=== PATIENT | male | born 1980 | race Caucasian/White ===

== ENCOUNTER 2023-06-14 12:59 | Emergency (ER) | payer MEDICAID ==
[~2023-06-14] VITALS: Ht 177.8 cm; Wt 85.0 kg
[2023-06-14 13:10] VITALS: TEMP 98.7; O2SAT 98
[2023-06-14] MEDS ORDERED: IBUP-2028 MT (14:24)
[2023-06-14] MEDS ORDERED: AMOX1TAB16 MT (14:24)
[2023-06-14] MEDS: IBUPROFEN 600MG TABLET PO ONE (15:37)
[2023-06-14 15:53] VITALS: BP 130/95; PULSE 66; RESP 18
== END 2023-06-14 15:54 | disposition home or self-care (01) ==
LOC: ER 12:59
DX: J01.90 Acute sinusitis, unspecified (principal)
CPT/HCPCS: 99283

== ENCOUNTER 2023-07-11 09:07 | Emergency (ER) | payer MEDICAID ==
[~2023-07-11] VITALS: Ht 177.8 cm; Wt 85.0 kg
[~2023-07-11 09:07] MED LIST: AMOX1TAB16 MT; IBUP-2028 MT
[2023-07-11] MEDS ORDERED: AMOX1TAB16 MT (09:24)
[2023-07-11 09:29] VITALS: BP 156/103; PULSE 86; RESP 16; TEMP 98; O2SAT 99
== END 2023-07-11 09:31 | disposition home or self-care (01) ==
LOC: ER 09:07
DX: J34.0 Abscess, furuncle and carbuncle of nose (principal)
CPT/HCPCS: 99281; 99283

== ENCOUNTER 2023-08-08 10:21 | Emergency (ER) | payer MEDICAID ==
[~2023-08-08] VITALS: Ht 175.3 cm; Wt 82.0 kg
[2023-08-08 10:28] VITALS: BP 144/94; RESP 16; TEMP 98.2; O2SAT 97
[2023-08-08] MEDS ORDERED: BENZ100C86 MT (12:23)
[2023-08-08] MEDS ORDERED: OMEP10CA5 MT (12:23)
[2023-08-08] MEDS ORDERED: PECT2.8L4 MM (12:26)
[2023-08-08 16:16] VITALS: PULSE 65
== END 2023-08-08 16:36 | disposition home or self-care (01) ==
LOC: ER 10:43
DX: J40 Bronchitis, not specified as acute or chronic (principal); I10 Essential (primary) hypertension; K21.9 Gastro-esophageal reflux disease without esophagitis; Z79.899 Other long term (current) drug therapy
CPT/HCPCS: 71045; 93005; 99283

== ENCOUNTER 2023-12-01 11:58 | Emergency (ER) | payer MEDICAID ==
[~2023-12-01] VITALS: Ht 177.8 cm; Wt 87.0 kg
[~2023-12-01 11:58] MED LIST changes: +BENZ100C86 MT; +OMEP10CA5 MT; +PECT2.8L4 MM
[2023-12-01 12:00] VITALS: O2SAT 100
[2023-12-01] MEDS ORDERED: DICL100G58 TP (12:43)
[2023-12-01 12:44] VITALS: TEMP 98.4
[2023-12-01 12:51] VITALS: BP 119/87; PULSE 86; RESP 16
[2023-12-01] MEDS: KETOROLAC 30MG/ML VIAL IM ONE (12:51)
== END 2023-12-01 13:04 | disposition home or self-care (01) ==
LOC: ER 11:58
DX: S63.501A Unspecified sprain of right wrist, initial encounter (principal); I10 Essential (primary) hypertension; K21.9 Gastro-esophageal reflux disease without esophagitis; Z98.890 Other specified postprocedural states; X58.XXXA Exposure to other specified factors, initial encounter; Y93.89 Activity, other specified; Y92.89 Other specified places as the place of occurrence of the external cause; Y99.8 Other external cause status
CPT/HCPCS: 73070; 73090; 73110; 96372; 99284; J1885; Z7610

== ENCOUNTER 2024-01-03 03:19 | Emergency (ER) | payer MEDICAID ==
[~2024-01-03] VITALS: Ht 177.8 cm; Wt 89.0 kg
[~2024-01-03 03:19] MED LIST changes: +DICL100G58 TP
[2024-01-03 03:32] VITALS: O2SAT 98
[2024-01-03] MEDS ORDERED: IBUPROFEN 600MG TABLET PO ONE (04:00)
[2024-01-03] MEDS: IBUPROFEN 600MG TABLET PO NR (05:36)
[2024-01-03] MEDS ORDERED: NAPR-1176 MT (05:38)
[2024-01-03 05:48] VITALS: BP 150/74; PULSE 70; RESP 16; TEMP 36.78072; O2SAT 98
== END 2024-01-03 05:51 | disposition home or self-care (01) ==
LOC: ER 03:19
DX: M25.531 Pain in right wrist (principal); M79.641 Pain in right hand; Z79.899 Other long term (current) drug therapy
CPT/HCPCS: 73110; 73130; 99284